=== PATIENT | male | born 1985 ===

== ENCOUNTER 2016-05-10 11:20 | Emergency (ER) | payer SELFPAY ==
[2016-05-10 11:33] VITALS: BP 143/98
--- NOTE | 2016-05-10 12:30 | EDPHY ---
H & P Stated Complaint: exposure to spilled temed/vapor/sob Time Seen by Provider: 05/10/16 12:25 HPI/ROS: CHIEF COMPLAINT: Shortness of breath from chemical exposure HISTORY OF PRESENT ILLNESS: The patient is a 30 year old male, presenting with shortness of breath from chemical exposure around 11am. 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 He was not under the mahoney and accidently inhaled it. He felt short of breath and lightheaded after inhaling. He was able to get the chemical under the mahoney so no one else was exposed. Total time of inhalation less than 1 minute. The patient's shortness of breath has improved. He denies chest pain or palpitations. No sore throat or pain with deep inhalation. MDS reports product is a pulmonary irritant. No issues with myocardial sensitization. REVIEW OF SYSTEMS: Aside from elements discussed in the HPI, a comprehensive 10-point review of systems was reviewed and is negative. PAST MEDICAL HISTORY: Denies. SOCIAL HISTORY: Nonsmoker. VITAL SIGNS: Reviewed by me GENERAL: Well-developed, well-nourished, resting comfortably in no respiratory distress. HEENT: Atraumatic. Eyes: No icterus, no injection. Mouth: moist mucous membranes. No erythema or lesions. Neck: supple with no adenopathy. LUNGS: Clear to auscultation bilaterally, no wheezes, rhonchi or rales. CARDIAC: Regular rate and rhythm, no rubs, murmurs or gallops. ABDOMEN: Soft, nontender, nondistended, bowel sounds normal. BACK: No CVA tenderness. EXTREMITIES: No trauma. No edema. Range of motion is normal throughout. NEURO: Alert and oriented, grossly nonfocal. SKIN: Warm and dry, no rash. PSYCHIATRIC: Normal mentation, no agitation. Portions of this note were transcribed by a biomedical engineering professor. I personally performed a history, physical exam, medical decision making, and confirmed accuracy of information the transcribed note. Source: Patient - Personal History Current Tetanus/Diphtheria Vaccine: Unsure - Medical/Surgical History Hx Asthma: No Hx Chronic Respiratory Disease: No Hx Diabetes: No Hx Cardiac Disease: No Hx Renal Disease: No Hx Cirrhosis: No Hx Alcoholism: No Hx HIV/AIDS: No Hx Splenectomy or Spleen Trauma: No Other PMH: denies - Social History Smoking Status: Never smoked Constitutional: Initial Vital Signs Temperature (C) 36.4 C 05/10/16 11:31 Heart Rate 88 05/10/16 11:31 Respiratory Rate 20 05/10/16 11:31 Blood Pressure 143/98 H 05/10/16 11:31 O2 Sat (%) 98 05/10/16 11:31 O2 Delivery Mode Room Air Allergies/Adverse Reactions: erythromycin base Allergy (Verified 05/10/16 11:31) Home Medications: Medication Instructions Recorded NK [No Known Home Meds] 05/10/16 Medical Decision Making ED Course/Re-evaluation: Discussed common effects of inhaled irritants. Patient's lungs clear, will not obtain CXR. Offered continuous observation in ED to ensure no deterioration over next 4-6 hours. Patient prefers to be discharged and will return if needed. Feel this is a reasonable plan. Here with a friend. Differential Diagnosis: Differential diagnosis for the patient's shortness of breath was considered including but not limited to pulmonary edema, bronchospasm, ARDS, pulmonary irritants, pulmonary infectious processes. Departure - Departure Disposition: Home, Routine, Self-Care Clinical Impression: Exposure to chemical inhalation Condition: Good Instructions: Dyspnea (ED) Additional Instructions: Return to the Emergency Department with cough, wheezing, throat swelling, or fever. Referrals: Patient,NotPresent [Primary Care Provider] - As per Instructions Report Scribed for: Stefania Jiménez Report Scribed by: Marcelle Ornelas Date of Report: 05/10/16 Time of Report: 12:30
[2016-05-10 12:46] VITALS: PULSE 78; RESP 18; TEMP 97.9; O2SAT 96
== END 2016-05-10 13:10 | disposition home or self-care (01) ==
DX: Z77.098 Contact with and (suspected) exposure to other hazardous, chiefly nonmedicinal, chemicals (principal)